=== PATIENT | male | born 1975 | race African-American/Black ===

== ENCOUNTER 2020-02-25 08:35 | Emergency (ER) | payer SELFPAY ==
[2020-02-25] MEDS ORDERED: Ketorolac Tromethamine 30 MG/ML VIAL ONE (08:55)
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
== END 2020-02-25 09:52 | disposition home or self-care (01) ==
LOC: ERS 08:35
DX: M54.5 Low back pain (principal); M54.6 Pain in thoracic spine; J45.909 Unspecified asthma, uncomplicated; F17.210 Nicotine dependence, cigarettes, uncomplicated
CPT/HCPCS: 72100; 96372; J1885